=== PATIENT | male | born 1965 ===

== ENCOUNTER 2018-11-10 21:33 | Emergency (ER) | payer OTHER ==
[~2018-11-10] VITALS: Ht 172.7 cm; Wt 127.0 kg
[2018-11-10] MEDS ORDERED: FORTAMET1000 MG (22:24)
[2018-11-10] MEDS ORDERED: GEMFIBROZIL600 MG (22:24)
[2018-11-10] MEDS ORDERED: COZAAR25 MG (22:25)
[2018-11-10] MEDS ORDERED: ASPIR 8181 MG (22:25)
[2018-11-10] MEDS ORDERED: SIMVASTATIN10 MG (22:25)
[2018-11-10] MEDS ORDERED: FEOSOL325 MG (22:26)
[2018-11-10] MEDS ORDERED: NEURONTIN300 MG (22:26)
[2018-11-10] MEDS ORDERED: HUMALOG100 UNIT/1 (22:28)
[2018-11-11] MEDS ORDERED: CELECOXIB100 MG PO (04:04)
== END 2018-11-11 04:22 | disposition home or self-care (01) ==
LOC: ER 21:33
DX: M25.562 Pain in left knee (principal); R35.0 Frequency of micturition